=== PATIENT | male | born 1960 | race Caucasian/White ===

== ENCOUNTER → 2024-02-06 12:43 | Outpatient (REF) | payer SELFPAY | LOC: RAD 12:43 | PROVIDERS: ATTENDING PHYSICIAN Family Medicine | DX: E78.2 Mixed hyperlipidemia (principal); Z86.79 Personal history of other diseases of the circulatory system | CPT/HCPCS: 75571 ==

== ENCOUNTER → 2024-02-12 10:21 | Outpatient (REF) | payer OTHER, SELFPAY | LOC: RCS 10:21 | PROVIDERS: ATTENDING PHYSICIAN Family Medicine | DX: Z86.79 Personal history of other diseases of the circulatory system (principal); R07.89 Other chest pain; R94.31 Abnormal electrocardiogram [ECG] [EKG] | CPT/HCPCS: 93017; 93350 ==

== ENCOUNTER → 2024-05-27 10:40 | Outpatient (REF) | payer OTHER, SELFPAY | LOC: RAD 10:40 | PROVIDERS: ATTENDING PHYSICIAN Family Medicine | DX: Z87.891 Personal history of nicotine dependence (principal); Z87.898 Personal history of other specified conditions | CPT/HCPCS: 71271 ==

== ENCOUNTER → 2024-07-01 06:18 | Day surgery (SDC) | payer OTHER, SELFPAY | LOC: GI 06:18 | PROVIDERS: ATTENDING PHYSICIAN Internal Medicine Gastroenterology; FAMILY PHYSICIAN Family Medicine | DX: D12.2 Benign neoplasm of ascending colon (principal); K57.30 Diverticulosis of large intestine without perforation or abscess without bleeding; K64.8 Other hemorrhoids; D50.9 Iron deficiency anemia, unspecified; K29.70 Gastritis, unspecified, without bleeding; K44.9 Diaphragmatic hernia without obstruction or gangrene | CPT/HCPCS: 45380; 43239; 88305; 88342 ==

== ENCOUNTER → 2024-08-23 16:06 | Outpatient (REF) | payer OTHER, SELFPAY ==
[2024-08-23 10:20] LABS: % Basophils 0.9 % (0-2); % Eosinophils 2.8 % (0-6); % Immature Granulocytes 0.5 % (0-0.5); % Lymphocytes 26.9 % (20.5-51.1); % Neutrophils 62.9 % (42.2-75.2); Absolute Basophils 0.1 10^3/uL (0-0.2); Absolute Eosinophils 0.2 10^3/uL (0-0.7); Absolute Monocytes 0.5 10^3/uL (0.1-0.6); Absolute Neutrophils 4.8 10^3/uL (1.4-6.5); Hematocrit 26.9 % (39.0-52.0); Hemoglobin 7.6 g/dL (13.0-18.0); Mean Corp Hgb Conc. 28.3 g/dL (33.0-37.0); Mean Corpuscular Volume 74.3 fL (80.0-94.0); Mean Platelet Volume 10.4 fL (7.4-10.4); Nucleated Red Blood Cells % 0.3 % (-); Platelet Count 429 10^3/uL (130-400); Red Blood Cell Count 3.62 10^6/uL (4.70-6.10); Red Cell Dist. Width 17.3 % (11.5-14.5); White Blood Cell Count 7.6 10^3/uL (4.8-10.8)
== END ==
LOC: OIDL 16:06
PROVIDERS: ATTENDING PHYSICIAN Internal Medicine Hematology & Oncology
DX: D50.9 Iron deficiency anemia, unspecified (principal)
CPT/HCPCS: 85025

== ENCOUNTER → 2024-08-30 15:45 | Outpatient (REF) | payer OTHER, SELFPAY ==
[2024-08-30 09:35] LABS: % Basophils 0.6 % (0-2); % Immature Granulocytes 0.2 % (0-0.5); % Lymphocytes 29.6 % (20.5-51.1); % Monocytes 5.7 % (1.7-9.3); % Neutrophils 60.9 % (42.2-75.2); Absolute Eosinophils 0.2 10^3/uL (0-0.7); Absolute Lymphocytes 1.9 10^3/uL (1.2-3.4); Absolute Monocytes 0.4 10^3/uL (0.1-0.6); Absolute Neutrophils 3.9 10^3/uL (1.4-6.5); Hematocrit 28.7 % (39.0-52.0); Hemoglobin 8.4 g/dL (13.0-18.0); Mean Corp Hgb Conc. 29.3 g/dL (33.0-37.0); Mean Corpuscular Hgb 22.4 pg (27.0-31.0); Mean Corpuscular Volume 76.5 fL (80.0-94.0); Mean Platelet Volume 9.9 fL (7.4-10.4); Platelet Count 490 10^3/uL (130-400); Red Blood Cell Count 3.75 10^6/uL (4.70-6.10); White Blood Cell Count 6.4 10^3/uL (4.8-10.8)
== END ==
LOC: OIDL 15:45
PROVIDERS: ATTENDING PHYSICIAN Internal Medicine Hematology & Oncology
DX: D50.9 Iron deficiency anemia, unspecified (principal)
CPT/HCPCS: 85025

== ENCOUNTER → 2024-09-06 13:18 | Outpatient (REF) | payer OTHER, SELFPAY ==
[2024-09-06 09:44] LABS: % Basophils 0.5 % (0-2); % Eosinophils 2.9 % (0-6); % Immature Granulocytes 0.2 % (0-0.5); % Lymphocytes 23.6 % (20.5-51.1); % Monocytes 8.1 % (1.7-9.3); % Neutrophils 64.7 % (42.2-75.2); Absolute Eosinophils 0.2 10^3/uL (0-0.7); Absolute Lymphocytes 1.4 10^3/uL (1.2-3.4); Absolute Monocytes 0.5 10^3/uL (0.1-0.6); Absolute Neutrophils 3.8 10^3/uL (1.4-6.5); Hematocrit 33.8 % (39.0-52.0); Hemoglobin 9.8 g/dL (13.0-18.0); Mean Corpuscular Hgb 22.2 pg (27.0-31.0); Mean Corpuscular Volume 76.6 fL (80.0-94.0); Mean Platelet Volume 9.5 fL (7.4-10.4); Platelet Count 418 10^3/uL (130-400); Red Blood Cell Count 4.41 10^6/uL (4.70-6.10); Red Cell Dist. Width 21.9 % (11.5-14.5); White Blood Cell Count 5.8 10^3/uL (4.8-10.8)
== END ==
LOC: OIDL 13:18
PROVIDERS: ATTENDING PHYSICIAN Internal Medicine Hematology & Oncology
DX: D50.9 Iron deficiency anemia, unspecified (principal)
CPT/HCPCS: 85025

== ENCOUNTER → 2024-09-13 14:16 | Outpatient (REF) | payer OTHER, SELFPAY ==
[2024-09-13 11:19] LABS: % Basophils 0.9 % (0-2); % Immature Granulocytes 0.2 % (0-0.5); % Lymphocytes 35.3 % (20.5-51.1); % Monocytes 6.3 % (1.7-9.3); % Neutrophils 52.3 % (42.2-75.2); Absolute Basophils 0.1 10^3/uL (0-0.2); Absolute Eosinophils 0.3 10^3/uL (0-0.7); Absolute Lymphocytes 2.2 10^3/uL (1.2-3.4); Absolute Monocytes 0.4 10^3/uL (0.1-0.6); Absolute Neutrophils 3.3 10^3/uL (1.4-6.5); Hematocrit 36.7 % (39.0-52.0); Hemoglobin 10.5 g/dL (13.0-18.0); Mean Corp Hgb Conc. 28.6 g/dL (33.0-37.0); Mean Corpuscular Hgb 22.7 pg (27.0-31.0); Mean Corpuscular Volume 79.4 fL (80.0-94.0); Mean Platelet Volume 10.8 fL (7.4-10.4); Nucleated Red Blood Cells % 0 % (-); Platelet Count 286 10^3/uL (130-400); Red Blood Cell Count 4.62 10^6/uL (4.70-6.10); Red Cell Dist. Width 24.1 % (11.5-14.5); White Blood Cell Count 6.4 10^3/uL (4.8-10.8)
[2024-09-13 14:10] LABS: Normal RBC Morphology No
[2024-09-13 14:11] LABS: Anisocytosis 1+; Hypochromasia 1+; Microcytosis 1+; Ovalocytes 1+
== END ==
LOC: OIDL 14:16
PROVIDERS: ATTENDING PHYSICIAN Internal Medicine Hematology & Oncology
DX: D50.9 Iron deficiency anemia, unspecified (principal)
CPT/HCPCS: 85025

== ENCOUNTER → 2024-09-20 16:08 | Outpatient (REF) | payer OTHER, SELFPAY ==
[2024-09-20 09:24] LABS: % Basophils 0.5 % (0-2); % Eosinophils 4.2 % (0-6); % Immature Granulocytes 0.2 % (0-0.5); % Lymphocytes 34.9 % (20.5-51.1); % Monocytes 6.3 % (1.7-9.3); % Neutrophils 53.9 % (42.2-75.2); Absolute Eosinophils 0.3 10^3/uL (0-0.7); Absolute Lymphocytes 2.1 10^3/uL (1.2-3.4); Absolute Monocytes 0.4 10^3/uL (0.1-0.6); Absolute Neutrophils 3.2 10^3/uL (1.4-6.5); Hematocrit 39.1 % (39.0-52.0); Hemoglobin 11.5 g/dL (13.0-18.0); Mean Corp Hgb Conc. 29.4 g/dL (33.0-37.0); Mean Corpuscular Hgb 23.6 pg (27.0-31.0); Mean Corpuscular Volume 80.1 fL (80.0-94.0); Mean Platelet Volume 10.1 fL (7.4-10.4); Platelet Count 290 10^3/uL (130-400); Red Blood Cell Count 4.88 10^6/uL (4.70-6.10); Red Cell Dist. Width 24.9 % (11.5-14.5)
== END ==
LOC: OIDL 16:08
PROVIDERS: ATTENDING PHYSICIAN Internal Medicine Hematology & Oncology
DX: D50.9 Iron deficiency anemia, unspecified (principal)
CPT/HCPCS: 85025

== ENCOUNTER → 2025-07-14 10:27 | Outpatient (REF) | payer OTHER, SELFPAY | LOC: HWRAD 10:27 | PROVIDERS: ATTENDING PHYSICIAN Family Medicine | DX: Z87.891 Personal history of nicotine dependence (principal) | CPT/HCPCS: 71271 ==